=== PATIENT | male | born 1995 | race Caucasian/White ===

== ENCOUNTER 2018-08-01 18:40 | Emergency (ER) | payer OTHER ==
--- NOTE | 2018-08-01 20:02 | ED Physician Documentation ---
PD HPI SKIN - Stated complaint Stated Complaint: BUG BITE LT ARM - Chief complaint Chief Complaint: General - History obtained from History obtained from: Patient - History of Present Illness Timing - onset: How many days ago (4-5) Timing - duration: Days (4-5) Timing - details: Gradual onset (Started with small bump and redness on the left proximal forearm. It increased in size over a couple of days and was seen by his primary care. They placed him on cephalexin. He states since that time and is gotten a little bit bigger despite the antibiotic and warm towels.), Still present Location: LUE (proximal forearm ulnar side.) Quality / character: Painful, Discolored (red), Swelling. No: Draining Associated symptoms: No: Fever, Myalgias Contributing factors: No: Insect bite /sting (does not really know the onset of it.) Similar symptoms before: Has not had sx before Recently seen: Clinic (2 days ago and Rx Keflex.) Review of Systems Constitutional: reports: Myalgias. denies: Fever, Chills Cardiac: denies: Chest pain / pressure, Palpitations Respiratory: denies: Cough PD PAST MEDICAL HISTORY - Past Medical History Cardiovascular: None Endocrine/Autoimmune: None - Present Medications Home Medications: Ambulatory Orders Medication Instructions Recorded Confirmed Sulfamethox/Trimeth 800/160 1 each PO BID #14 tablet 08/01/18 [Bactrim Ds 800/160] - Allergies Allergies/Adverse Reactions: Allergies Allergy/AdvReac Type Severity Reaction Status Date / Time No Known Drug Allergies Allergy Verified 08/01/18 18:48 - Social History Does the pt smoke?: No Smoking Status: Never smoker PD ED PE NORMAL - Vitals Vital signs reviewed: Yes - General General: Alert and oriented X 3, No acute distress, Well developed/nourished - Derm Derm: Normal color, Warm and dry - Extremities Extremities: Other (Left proximal forearm on the ulnar side she is a area of m ore firm redness and swelling and surrounding that is an area of moderate redness. There is no drainage at this time. No foreign bodies are seen.) - Neuro Neuro: Alert and oriented X 3, No motor deficit, No sensory deficit, Normal speech Results - Vitals Vitals: Vital Signs - 24 hr 08/01/18 08/01/18 18:46 20:28 Temperature 37.1 C Heart Rate 99 67 Respiratory 20 18 Rate Blood Pressure 159/105 H 132/75 H O2 Saturation 96 98 Oxygen O2 Source Room air Procedures - Abscess I&D (location) left proximal forearm Preparation: Lidocaine 1%, With epi Incision: Incised with scalpel, Purulent drainage, Irrigated. No: Packed, Culture obtained Other: Antibiotic prescribed PD MEDICAL DECISION MAKING - ED course Complexity details: considered differential (The infection was now having an abscessed center so I did incision and drainage with some pus out and place him on antibiotic with staph coverage), d/w patient Departure - Departure Disposition: 01 Home, Self Care Clinical Impression: Abscess of forearm, left Condition: Stable Record reviewed to determine appropriate education?: Yes Instructions: ED Abscess IandD Follow-Up: [facility] [Primary Care Provider] - Prescriptions: Sulfamethox/Trimeth 800/160 [Bactrim Ds 800/160] 1 each PO BID #14 tablet Comments: The infection may not have been improving either because it needs a different antibiotic or because there was the trapped purulence. With the open and draining and adding Bactrim this should improve over the next couple of days. Use warm moist heat or soak the arm when you get home tonight in a couple of times tomorrow and try to get more pus out of it before the hole closes over. Add Bactrim antibiotic to your current 1. Ibuprofen for pain. Recheck if still not improving over the next 2-3 days. Discharge Date/Time: 08/01/18 20:28
[2018-08-01] MEDS ORDERED: SULFAMETH/TRIMETH DS 800/160 MG TABLET PO STA (20:17)
[2018-08-01] MEDS ORDERED: IBUPROFEN 600 MG TABLET PO STA (20:17)
[2018-08-01 20:29] VITALS: BP 132/75
== END 2018-08-01 20:28 | disposition home or self-care (01) ==
LOC: ED 18:40
DX: L02.414 Cutaneous abscess of left upper limb (principal)
CPT/HCPCS: 10060; 99283; A9270